=== PATIENT | male | born 1960 | race Hispanic/Latino ===

== ENCOUNTER 2017-01-07 18:23 | Emergency (ER) | payer OTHER ==
[2017-01-07 20:18] VITALS: BP 160/69
--- NOTE | 2017-01-07 20:38 | Emergency Department Report ---
HPI - General Chief Complaint: Dental/Oral Time Seen by Provider: 01/07/17 20:37 - HPI HPI: Patient here complaining of lower front tooth pain since noon today. Patient said that he has good insurance and he just hasn't been able to get to the dentist. He said he took Tylenol at 5 PM which did not relieve his pain. Patient said he lives in [place] and he is here doing job training for a [employer]. Reports pain is 3/10 and swelling around gums. Pain is achy and worse with eating. He said he has a history of bad teeth but no other history. Patient said his is going to schedule an appointment with the dentist but won't be for the next 8 days. He denies any fever or chills. Denies any trauma. As it is sore throat, general in or difficulty swallowing. Denies any sinus pain or pressure. Denies any cough, chest pain or nasal congestion. ED Past Medical Hx - Past Medical History Previous Medical History?: Yes Additional medical history: "bad teeth" - Surgical History Past Surgical History?: No - Family History Family history: no significant - Social History Smoking Status: Never Smoker Substance Use Type: None - Medications Home Medications: Home Medications Medication Instructions Recorded Confirmed Last Taken Type Clindamycin [Clindamycin CAP] 300 mg PO Q8H #30 cap 01/07/17 Unknown Rx HYDROcodone/APAP 5-325 [Tamms 1 each PO Q8HR PRN #15 tablet 01/07/17 Unknown Rx 5/325] Ibuprofen [Motrin] 600 mg PO Q8H PRN #15 tablet 01/07/17 Unknown Rx ED Review of Systems ROS: Stated complaint: TOOTH ABSCESS Other details as noted in HPI Comment: All other systems reviewed and negative Constitutional: no symptoms reported ENT: dental pain. denies: ear pain, throat pain, congestion Respiratory: no symptoms reported Cardiovascular: denies: chest pain, palpitations, edema, syncope Gastrointestinal: denies: nausea, vomiting Musculoskeletal: denies: back pain, joint swelling, arthralgia, myalgia Skin: denies: rash Neurological: denies: headache, weakness, numbness, paresthesias, confusion, abnormal gait, vertigo Physical Exam - Physical Exam Vital Signs: Vital Signs 01/07/17 20:15 Temperature 97.8 F Pulse Rate 83 Respiratory 18 Rate Blood Pressure 160/69 [Right] O2 Sat by Pulse 100 Oximetry General: This is a 56-year-old male well-nourished well-developed in no acute distress. Physical Exam: Head: Normocephalic, atraumatic, no abrasion, no bruising and no contusion. Eyes: Biateral pupils equal and reactive to light, bilateral EOM intact.. Bilateral conjunctival and sclera without injection, normal accommodation. Ears: Bilateral EAC without any redness drainage or swelling, BIlateral TM pearly max .bilateral tragus is normal and nontender. No auricular abnormality. No Mastoid bones tenderness. Nose: Moist, Normal mucosa. No maxillary or frontal times sinus tenderness. Mouth: No pharyngeal exudate or erythema. No peritonsillar abscesses. Uvula is midline and oral airways patent. Moist and tongue is normal .multiple dental caries noted. Tenderness to tooth #22,23,24,25. No induration or fluctuance. Positive gingivitis around tooth #22, 23, 24 and 25. No facial swelling noted. Neck: Supple No Cervical adenopathy, full range of motion and no C-spine tenderness. No swelling or tracheal deviation Cardiovascular: S1, S2. Regular rate and rhythm. No murmur. Capillary refill is less then 3 seconds. Lungs: Clear to auscultate bilaterally. No rhonchi, wheezes or rales. No chest wall tenderness MSK: Strength 5/5 in all extremities. No joint deformity or crepitus. Normal inspection. Full range of motion to all extremities Extremities: No clubbing, cyanosis or edema. +2 pulses. No neurovascular compromise Skin: Clean, dry and intact. No rash or lesions. Psych: Normal mood and behavior. ED Course Vital Signs 01/07/17 20:15 Temperature 97.8 F Pulse Rate 83 Respiratory 18 Rate Blood Pressure 160/69 [Right] O2 Sat by Pulse 100 Oximetry - Reevaluation(s) Reevaluation #1: 01/07/17 21:59 She received Tamms 5/325 2 tablets and minimize his oxygen milligrams by mouth and emergency room. He voices relief of his dental pain. ED Medical Decision Making - Medical Decision Making ED course: In here traveling from out of town for a job training and reports that he has poor teeth and started heard in today and he took some Tylenol but it didn't relieve his toothache. Physical findings for gingivitis, dental caries and tenderness to lower front tooth. Patient was given clindamycin 600 mg by mouth and 5/325 2 tablets in the emergency room which relieved this pain. Patient said he'll be going back to [place] which is where he lives and that his is sitting up and appointment with a dentist for him. I discussed with him that he will need to see a dentist to ongoing tooth problems. He voiced understanding of treatment plan and diagnosis and discharged home in stable condition. Patient given prescription for clindamycin , Motrin and Tamms. Critical care attestation.: If time is entered above; I have spent that time in minutes in the direct care of this critically ill patient, excluding procedure time. ED Disposition Clinical Impression: Tooth ache, Dental caries, Gingivitis Disposition: TO HOME OR SELFCARE Is pt being admited?: No Does the pt Need Aspirin: No Condition: Stable Instructions: Dental Caries (ED), Toothache (ED), Gingivitis (ED) Additional Instructions: Please refrain from driving narcotic medication causes drowsiness Patient antibiotic as prescribed. Please follow up with dentist as discussed. Prescriptions: Clindamycin [Clindamycin CAP] 300 mg PO Q8H #30 cap HYDROcodone/APAP 5-325 [Tamms 5/325] 1 each PO Q8HR PRN #15 tablet PRN Reason: Pain Ibuprofen [Motrin] 600 mg PO Q8H PRN #15 tablet PRN Reason: Pain Referrals: [facility] [Outside] - 01/09/17 Forms: Accompanied Note, Work/School Release Form(ED)
[2017-01-07] MEDS ORDERED: CLEOCIN PO ONE (21:05)
[2017-01-07] MEDS ORDERED: NORCO 5/325 PO ONE (21:05)
== END 2017-01-07 22:20 | disposition home or self-care (01) ==
LOC: ED 18:23
DX: K04.7 Periapical abscess without sinus (principal); Z53.21 Procedure and treatment not carried out due to patient leaving prior to being seen by health care provider
CPT/HCPCS: 99282